=== PATIENT | male | born 1955 | race Caucasian/White ===

== ENCOUNTER 2020-06-30 12:41 | Outpatient (CLI) | payer MEDICARE | END 2020-06-30 12:42 | disposition home or self-care (01) | LOC: DTY/OP 12:41 | PROVIDERS: ATTEND Surgery | DX: E78.5 Hyperlipidemia, unspecified (principal); E11.9 Type 2 diabetes mellitus without complications; I10 Essential (primary) hypertension | CPT/HCPCS: 97802 ==

== ENCOUNTER 2020-09-24 15:00 | Inpatient (IN) | payer MEDICARE ==
[2020-09-26 09:32] VITALS: BMI 36.6
[2020-09-29] MEDS ORDERED: Scopolamine 1.5 mg/72 hour Patch ONE (10:06)
[2020-09-29] MEDS ORDERED: cefOXitin Sodium/Dextrose 2 GM/50 ML BAG ONE (10:06)
[2020-09-29] MEDS ORDERED: Midazolam HCl 2 mg/2 ml Vial ONE (14:28)
[2020-09-29] MEDS ORDERED: Lidocaine 1% w/Epinephrine 1:100K 20 ML VIAL ONE (14:29)
[2020-09-29] MEDS ORDERED: Bupivacaine 0.25% HCL 30 ML VIAL ONE (14:29)
[2020-09-29] MEDS ORDERED: Fentanyl 100 MCG/2 ML VIAL ONE ×4 (14:40→20:37)
[2020-09-29] MEDS ORDERED: Promethazine HCl 25 MG/ML VIAL IM PRN (14:49)
[2020-09-29] MEDS ORDERED: Dextrose 50% Abboject 50 ML SYRINGE SLOW IVP PRN (14:49)
[2020-09-29] MEDS ORDERED: Ondansetron PF 4 MG/2 ML Vial IVP PRN (14:49)
[2020-09-29] MEDS ORDERED: Dextrose 5% in Water 1,000 ML IV PRN (14:49)
[2020-09-29] MEDS ORDERED: Insulin Regular 300 UNITS/3 ML VIAL SC PRN (14:49)
[2020-09-29] MEDS ORDERED: hydrALAZINE 20 MG/ML VIAL SLOW IVP PRN (14:49)
[2020-09-29] MEDS ORDERED: diphenhydrAMINE 50 MG/ML VIAL IVP PRN (14:49)
[2020-09-29] MEDS ORDERED: Lidocaine 1% PF 5 ML VIAL ONE (15:22)
[2020-09-29] MEDS ORDERED: Dexamethasone 20 MG/5 ML VIAL ONE (15:22)
[2020-09-29] MEDS ORDERED: PHENYLEPHRINE-NS 100 MCG/ML 10 ML SYRINGE ONE (15:22)
[2020-09-29] MEDS ORDERED: Rocuronium Bromide 10 MG/ML (10ML VIAL) ONE (15:22)
[2020-09-29] MEDS ORDERED: ePHEDrine Sulfate 50 MG/10 ML VIAL ONE (15:22)
[2020-09-29] MEDS ORDERED: Vecuronium 10 MG VIAL ONE (15:22)
[2020-09-29] MEDS ORDERED: Ondansetron PF 4 MG/2 ML Vial ONE (15:22)
[2020-09-29] MEDS ORDERED: PROPOFOL 200 MG/20 ML VIAL ONE (15:22)
[2020-09-29] MEDS ORDERED: Glycopyrrolate 0.2 MG/ML 5 ML SYRINGE ONE (15:22)
[2020-09-29] MEDS ORDERED: HYDROmorphone 0.5 MG/0.5 ML SYRINGE ONE (17:20)
[2020-09-29] MEDS ORDERED: HYDROmorphone 2 MG/ML VIAL ONE (18:28)
[2020-09-29] MEDS ORDERED: Promethazine HCl 25 MG/ML VIAL ONE (18:29)
[2020-09-29] MEDS ORDERED: D5 1/2 NS w/20 mEq KCL 1,000 ML ONE (21:00)
[2020-09-29] MEDS: D5 1/2 NS w/20 mEq KCL 1,000 ML IV SCH ×2 (21:33→22:21)
[2020-09-29] MEDS: Morphine 2 MG/ML VIAL SLOW IVP PRN (21:55)
[2020-09-30] MEDS: Morphine 2 MG/ML VIAL SLOW IVP PRN ×3 (00:14→06:22)
[2020-09-30] MEDS: D5 1/2 NS w/20 mEq KCL 1,000 ML IV SCH ×2 (05:15→16:30)
[2020-09-30 06:12] LABS: #Lymphocytes 0.7 thou/uL (1.20-3.40); #Monocytes 0.5 thou/uL (0.11-0.59); #Neutrophils 3.2 thou/uL (1.40-6.50); %Basophils 0.4 % (0.0-1.0); %Eosinophils 0.1 % (0.0-10.0); %Lymphocytes 15.7 % (21.0-51.0); %Monocytes 11.5 % (0.0-10.0); %Neutrophils 72.3 % (42.0-75.0); Hemoglobin 14.1 g/dL (14.0-18.0); Mean Corpuscular HGB CONC 33.8 g/dL (32.0-36.0); Mean Corpuscular Hemoglobin 30.8 pg (27.0-31.0); Mean Corpuscular Volume 90.9 fL (78.0-98.0); Mean Platelet Volume 9.7 fL (7.4-10.4); Platelet Count 105 thou/uL (130-400); RBC Distribution Width 12.9 % (11.5-14.5); Red Blood Cell (RBC) Count 4.58 mill/uL (4.70-6.10); White Blood Cell (WBC) Count 4.5 thou/uL (4.8-10.8)
[2020-09-30 06:29] LABS: Anion Gap 15 mmol/L (10-20); BUN (Urea Nitrogen) 17 mg/dL (8.4-25.7); Calc. Creatinine Clearance 131 mL/min (70-130); Calcium 8.6 mg/dL (7.8-10.44); Carbon Dioxide 25 mmol/L (23-31); Chloride 104 mmol/L (98-107); Glucose 138 mg/dL (80-115); Potassium 5.2 mmol/L (3.5-5.1); Sodium 139 mmol/L (136-145)
[2020-09-30] MEDS: Hydrocodone-Acetamin 15 ML UDCUP PO PRN ×3 (08:47→17:12)
[2020-09-30] MEDS ORDERED: Pantoprazole 40 MG VIAL IVP SCH (09:00)
[2020-09-30] MEDS ORDERED: Enoxaparin Sodium 40 MG/0.4 ML SYRINGE SC SCH (09:00)
[2020-09-30 17:01] VITALS: BP 146/83; TEMP 98.3
== END 2020-09-30 17:49 | disposition home or self-care (01) | DRG 620 ==
LOC: SURG A 09-29 09:31 → EDSTATUS 09-29 15:00 → SURG A 09-29 21:01
PROVIDERS: ADMIT Surgery; ATTEND Surgery
PROC: 0DB64Z3 Excision of Stomach, Percutaneous Endoscopic Approach, Vertical (ICD-10-PCS; principal; 2020-09-29)
PROC: 8E0W4CZ Robotic Assisted Procedure of Trunk Region, Percutaneous Endoscopic Approach (ICD-10-PCS; 2020-09-29)
PROC: 3E043XZ Introduction of Vasopressor into Central Vein, Percutaneous Approach (ICD-10-PCS; 2020-09-29)
DX: E88.81 Metabolic syndrome and other insulin resistance (principal); Z68.41 Body mass index [BMI] 40.0-44.9, adult; E66.01 Morbid (severe) obesity due to excess calories; K21.9 Gastro-esophageal reflux disease without esophagitis; E11.9 Type 2 diabetes mellitus without complications; I10 Essential (primary) hypertension; E78.5 Hyperlipidemia, unspecified; G47.33 Obstructive sleep apnea (adult) (pediatric); M15.0 Primary generalized (osteo)arthritis; I48.0 Paroxysmal atrial fibrillation; Z85.46 Personal history of malignant neoplasm of prostate; Z86.010 Personal history of colon polyps; Z98.890 Other specified postprocedural states; Z79.01 Long term (current) use of anticoagulants; Z79.899 Other long term (current) drug therapy; Z79.84 Long term (current) use of oral hypoglycemic drugs; Z79.51 Long term (current) use of inhaled steroids; Z96.641 Presence of right artificial hip joint; Z90.89 Acquired absence of other organs
CPT/HCPCS: 36415; 80048; 85025; 88307; 93005; 93010; 94760; C9113; J0694; J1100; J1170; J1650; J2250; J2270; J2405; J2550; J2704; J3010; J3480; S0020